=== PATIENT | female | born 1980 | race Two or more races ===

== ENCOUNTER → 2021-03-05 08:28 | Outpatient (CLI) | payer BC, SELFPAY ==
--- NOTE | ~2021-03-05 | MM_ITS ---
EXAMINATION: MM screening rickie BI w rashida HISTORY: Screening TECHNIQUE: Craniocaudal and mediolateral oblique 3-D tomosynthesis images were obtained and synthetic 2-D images were generated. CAD analysis was submitted and interpreted. COMPARISON: No prior mammogram is available for comparison at this institution. BREAST PARENCHYMAL COMPOSITION: The breasts are heterogenously dense, which may obscure small masses FINDINGS: There is no evidence of suspicious mass, calcification, or architectural distortion to sugg est malignancy in either breast. There has been no suspicious interval change. IMPRESSION: 1. No mammographic evidence of malignancy. 2. Recommend routine screening mammography in one year. BI-RADS Category 1: Negative Reviewed, dictated and finalized at location B. 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
== END ==
PROVIDERS: PCP Internal Medicine; Visit Provider Nurse Practitioner
DX: Z12.31 Encounter for screening mammogram for malignant neoplasm of breast (principal)
CPT/HCPCS: 77063; 77067

== ENCOUNTER → 2021-11-04 07:14 | Outpatient (CLI) | payer BC, SELFPAY ==
--- NOTE | ~2021-11-04 | XR_ITS ---
EXAMINATION: XR lumbar spine 2-3V DATE: 11/04/2021 07:23 INDICATION: Low back pain radiating down the right leg. TECHNIQUE: 3 views of lumbar spine were obtained. COMPARISON: CT abdomen and pelvis 01/22/2017 FINDINGS: Bone alignment is normal. Vertebral body heights are normal. There is mildly decreased disc height at L4-L5 with endplate remodeling. There is multilevel mild facet joint osteoarthritis. There are bilateral total hip arthroplasties. There is an intrauterine device in expected position. IMPRESSION: 1. Mild lumbar spondylosis. Reviewed, dictated and finalized at location A. IMPRESSION: 1. Mild lumbar spondylosis.
== END ==
PROVIDERS: PCP Internal Medicine; Visit Provider Nurse Practitioner
DX: M79.661 Pain in right lower leg (principal); M47.896 Other spondylosis, lumbar region
CPT/HCPCS: 72100

== ENCOUNTER 2022-01-03 15:00 | Outpatient (RCR) | payer BC, SELFPAY ==
--- NOTE | 2021-11-24 13:47 | PCPTNOTE ---
Patient did not show up for scheduled initial evaluation this date.
--- NOTE | 2021-12-12 14:45 | PTOPEVAL1 ---
Assessment and note entered by María Melvin, PT, DPT Evaluation Information Assessment Status Evaluation Diagnosis back pain Onset chronic Subjective Information Pt states she is here for her chronic back pain. 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 Pt states she often has to sit on her floor and this is painful . She states she feels weak when getting up from the floor. Reported Pain Level Pain Score 4: Self Report Assessment PT Clinical Summary Mihaela presents to therapy today for her initial evaluation with a diagnosis of chronic back pain, she also has a history of chito SIMON d/t avascular necrosis. She demonstrates lumbar and thoracic ROM that is WNL. She has asymmetric lumbar paraspinal muscle tone and postural asymmetries in standing. She has decreased core strength allowing excess motion during functional motions. Skilled physical therapy services are indicated to promote good movement mechanics, to achieve proper posture, to improve core strength, to limit pain, and to promote unlimited functional mobility. Plan of Care Interventions Electrical Stimulation,Gait Training,Hot Pack/Cold Pack,Manual Therapy,Neuro Re-education,Patient/ Caregiver Educati,Therapeutic Activities, Therapeutic Exercise PT Services Indicated Yes Treatment Frequency and 1-2x/wk for 4 wks Duration These treatments will address the objective and functional deficits as defined above. The patient will be advanced safely and appropriately in order for the patient to progress towards his/her prior level of function. Additional exercises will be introduced and as well as a comprehensive home exercise program upon discharge, if needed, ?to ensure carryover of functional gains achieved in the clinic. This treatment plan has been reviewed and agreement upon by the patient.
--- NOTE | 2022-01-06 08:43 | PCPTNOTE ---
Patient is ill and canceled appointment.
--- NOTE | 2022-01-09 15:50 | PCPTNOTE ---
Patient did not show up for scheduled appointment this date. Called and left voicemail for her to call and reschedule.
--- NOTE | 2022-01-25 08:28 | PTOPDC ---
Assessment and note entered by María Melvin, PT, DPT Evaluation Information Assessment Status Discharge - Pt Not Present Diagnosis back pain Onset chronic Subjective Information Called and spoke with patient to follow up as she does not have a re-evaluation rescheduled. She states she is doing great. She has pneumonia 2 weeks ago and worried this would set her back, but she continues to do great. Assessment PT Clinical Summary Mihaela has completed 5 visits of skilled therapy from 12/12/21 to 01/03/22. She will be discharged at this time. If she needs to return to therapy at a later date, she will need a new order. Plan of Care Treatment Frequency and to be discharged Duration
== END 2022-01-25 09:17 | disposition home or self-care (01) ==
LOC: ANHGOSHPT 15:00
PROVIDERS: PCP Internal Medicine; Visit Provider Nurse Practitioner
DX: M54.9 Dorsalgia, unspecified (principal)
CPT/HCPCS: 97110; 97112; 97140; 97161; 97530; 99199

== ENCOUNTER → 2022-01-18 11:37 | Outpatient (CLI) | payer BC, SELFPAY ==
--- NOTE | ~2022-01-18 | XR_ITS ---
EXAMINATION: XR chest 2V 01/18/2022 11:52 INDICATION: Shortness of breath PROCEDURE: 2 view chest COMPARISON: 05/29/2015 FINDINGS: The lungs are clear. The cardiomediastinal silhouette is within normal limits. There are no pleural effusions. There is no pneumothorax suspected. IMPRESSION: 1: NO ACUTE CARDIOPULMONARY DISEASE. Reviewed, dictated and finalized at location A. YE GUNNER
== END ==
PROVIDERS: PCP Nurse Practitioner; Visit Provider Nurse Practitioner
DX: R06.02 Shortness of breath (principal)
CPT/HCPCS: 71046

== ENCOUNTER 2023-11-24 10:39 | Outpatient (CLI) | payer BC, SELFPAY ==
--- NOTE | ~2023-11-24 | MM_ITS ---
EXAMINATION: MM screening rickie BI w rashida HISTORY: Screening mammogram TECHNIQUE: Craniocaudal and mediolateral oblique 3-D tomosynthesis images were obtained and synthetic 2-D images were generated. CAD analysis was submitted and interpreted. COMPARISON: 03/05/2021 BREAST PARENCHYMAL COMPOSITION:Dense: The breasts are extremely dense, which lowers the sensitivity o f mammography. FINDINGS: No suspicious mass, calcification, or architectural distortion are identified in either kaylah ast to suggest malignancy. There has been no suspicious interval change. IMPRESSION: No mammographic evidence of malignancy. Recommend routine screening mammography in one year. BI-RADS Category 1: Negative Reviewed, dictated and finalized at location .
== END 2023-11-24 10:40 | disposition home or self-care (01) ==
PROVIDERS: PCP Internal Medicine; Visit Provider Internal Medicine
DX: Z12.31 Encounter for screening mammogram for malignant neoplasm of breast (principal)
CPT/HCPCS: 77063; 77067